=== PATIENT | female | born 1965 | race Caucasian/White ===

== ENCOUNTER 2025-04-01 09:51 | Emergency (ER) | payer MEDICAID ==
[~2025-04-01] VITALS: Ht 165.1 cm; Wt 61.2 kg
[~2025-04-01 09:51] MED LIST: AZIT250T13 PO; BENZ-13 PO; CEFU500T66 PO
[2025-04-01 11:49] VITALS: BP 122/76; TEMP 98.3; O2SAT 98
== END 2025-04-01 11:50 | disposition home or self-care (01) ==
LOC: ER 09:54
DX: R05.9 Cough, unspecified (principal); J18.9 Pneumonia, unspecified organism
CPT/HCPCS: 71046